=== PATIENT | male | born 1995 ===

== ENCOUNTER 2017-04-01 10:17 | Emergency (ER) | payer SELFPAY ==
[~2017-04-01] VITALS: Ht 170.2 cm; Wt 63.0 kg
[2017-04-01 10:37] VITALS: Ht 170.2 cm; Wt 63.0 kg
[2017-04-01] MEDS ORDERED: SODIUM CHLORIDE 0.9% 1L IRRIG IRR STA (11:32)
[2017-04-01] MEDS ORDERED: LIDOCAINE 1% (MDV) 10 ML INJ INJ STA (11:32)
[2017-04-01] MEDS ORDERED: DIPHTH/TET/ACEL PERTUSS (ADULT) 0.5 ML VIAL IM ONE (12:00)
--- NOTE | 2017-04-01 12:01 | RADRPT ---
PROCEDURE: XR Finger. CLINICAL INDICATION: Trauma. Pain. TECHNIQUE: Three views of the left third finger are available for review. COMPARISON: None available FINDINGS: Fracture of the distal tuft of the distal phalanx of the left third digit is seen. Mild displacemen t at the fracture site is seen. The remaining osseous structures of the adjacent left second and fo urth digits are unremarkable. No radiopaque foreign body is seen. No other abnormality is identifi ed. IMPRESSION: 1. Displaced fracture of the distal tuft of the distal phalanx of the left third digit. RPTAT: HMJB .Maged Jason MD, MD Date Time Electronically viewed and signed by .Maged Jason MD, MD on 04/01/2017 12:01 .B/
[2017-04-01] MEDS ORDERED: CEPH-443 PO (12:27)
[2017-04-01] MEDS ORDERED: IBUP-1542 PO (12:29)
[2017-04-01] MEDS ORDERED: CEFAZOLIN 1 GM INJ IM ONE (12:30)
--- NOTE | 2017-04-01 12:38 | ERD ---
ER Documentation Chief Complaint Date/Time DATE: 04/01/17 TIME: 12:32 Chief Complaint LT 3RD FINGER LACERATION SUSTAINED AT WORK TODAY HPI 21-year-old male complains of left finger pain and bleeding after getting crushed by a piece of wood today. He has bleeding a laceration across the base of the left third fingernail. His tetanus is not up-to-date. Denies fevers, restricted range of motion weakness. ROS All systems reviewed and are negative except as per history of present illness. Medications Home Meds Active Scripts Ibuprofen* (Motrin*) 600 Mg Tab, 600 MG PO Q6, #15 TAB Prov:TIERNEY KHAN MD 04/01/17 Cephalexin* (Keflex*) 500 Mg Capsule, 500 MG PO QID for 7 Days, CAP Prov:TIERNEY KHAN MD 04/01/17 PMhx/Soc Medical and Surgical Hx: pt denies Medical Hx, pt denies Surgical Hx Hx Alcohol Use: Yes Hx Substance Use: No Hx Tobacco Use: No Physical Exam Vitals Vital Signs Date Time Temp Pulse Resp B/P Pulse Ox O2 Delivery O2 Flow Rate FiO2 04/01/17 10:37 98.4 66 16 121/70 98 Physical Exam Const: []Alert, [id number]. Head: Atraumatic Eyes: Normal Conjunctiva ENT: Normal External Ears, Nose and Mouth. Neck: Full range of motion..~ No meningismus. Resp: Clear to auscultation bilaterally Cardio: Regular rate and rhythm, no murmurs Abd: Soft, non tender, non distended. Normal bowel sounds Skin: No petechiae or rashes Back: No midline or flank tenderness Ext: No cyanosis, or edema. There is a laceration across the base of the left third fingernail. There is a slight deformity. Cap refill is less than 2 seconds. There is no restricted range of motion of the PIP or DIP joint Neur: Awake and alert Psych: Normal Mood and Affect Results 24 hrs Current Medications Medications (Trade) Dose Ordered Sig/Roxie Route PRN Reason Start Time Stop Time Status Last Admin Dose Admin Diphtheria/ Tetanus/Acell Pertussis (Adacel) 0.5 ml ONCE ONCE IM 04/01/17 12:00 04/01/17 12:01 DC 04/01/17 11:39 Sodium Chloride (NS (Irrig)) 1,000 ml ONCE STAT IRR 04/01/17 11:32 04/01/17 11:35 DC Lidocaine HCl (Lidocaine 1% (Mdv) 10 ml) 10 ml ONCE STAT INJ 04/01/17 11:32 04/01/17 11:35 DC Cefazolin Sodium (Ancef) 1 gm ONCE ONCE IM 04/01/17 12:30 04/01/17 12:31 DC Procedures/MDM X-ray Finger 2V Interpreted by me: Bones: Fracture of left distal third digit at the touch. There is minimal separation no significant malalignment Joints: [No dislocation] Foreign body: [None]. Impression-tuft fracture left third digit with minimal displaced Left finger laceration was irrigated with normal saline. 3 cc of lidocaine was used for digital block. 3 4-0 nylon sutures were used to reapproximate the base of the nail the lateral aspect laceration. Patient tolerated procedure well. Finger was placed in left middle splint. Patient is neurovascular intact after middle splint. Patient was given Ancef 1 g IM and tetanus booster was given. Patient has signs of left middle finger fracture laceration, possibly open fracture. He will be discharged home the prescription of ibuprofen and Keflex instructions for wound check in 2 days, suture removal in 7-10 days and orthopedic follow- up. Patient is advised to return for fevers, redness, new worsening symptoms otherwise with hand clinic as referred. Departure Diagnosis: Primary Impression: Laceration Additional Impressions: Open finger fracture Encounter type: initial encounter Finger: middle finger Phalanx: unspecified phalanx Fracture alignment: nondisplaced Laterality: left Qualified Code: S62.603B - Open nondisplaced fracture of phalanx of left middle finger, unspecified phalanx, initial encounter Finger fracture, left Encounter type: initial encounter Finger: middle finger Fracture type: closed Phalanx: middle Fracture alignment: nondisplaced Qualified Code: S62.653A - Closed nondisplaced fracture of middle phalanx of left middle finger , initial encounter Condition: Stable Patient Instructions: Finger and Toe Fractures (Broken Finger or Toe), Fracture , Finger (Open) Referrals: [facility] Additional Instructions: cheque 2 singh para cheque para infeccion. cheque 7 singh para saca los puntos / grapas. Va al wen doctor/ specialista para mas evaluacon en el proximo semana. posiblemente necesita autorizado de wen doctor primario para specialista. Regresa para fiebre, o mas o nueva simptomas. TIERNEY KHAN MD Apr 01, 2017 12:38
[2017-04-01 13:37] VITALS: BP 118/70; PULSE 66; RESP 16; TEMP 98.4
== END 2017-04-01 13:40 | disposition home or self-care (01) ==
LOC: FTE 10:17
DX: S62.653A Nondisplaced fracture of middle phalanx of left middle finger, initial encounter for closed fracture (principal); W22.8XXA Striking against or struck by other objects, initial encounter; Y92.9 Unspecified place or not applicable; Z23 Encounter for immunization
CPT/HCPCS: 12001; 29130; 73140; 90471; 90715; 96372; 99284; J0690